=== PATIENT | male | born 1965 | race African-American/Black ===

== ENCOUNTER 2019-01-22 21:11 | Inpatient (IN) | payer MEDICAID ==
[~2019-01-22] VITALS: Ht 182.9 cm; Wt 82.6 kg
[2019-01-22 21:45] LABS: Basophils # (auto) 0.1 uL; Eosinophils # (auto) 0.3 uL; Eosinophils % (auto) 7.3 % (0.0-7.0); Hemoglobin 16.6 g/dL (13.5-17.5); Nucleated Red Blood Cells % 0.1 %; White Blood Cell 4.6 10^3/uL (4.4-10.8)
[2019-01-22] MEDS ORDERED: LORazepam 2MG/ML-1ML VIAL IV ONE (21:45)
[2019-01-22] MEDS ORDERED: ASPirin 81 mg TAB PO ONE (21:45)
[2019-01-22 22:06] LABS: Albumin 3.8 g/dL (3.4-5.0); BUN/Creatinine Ratio 11.4; Calcium 8.6 mg/dL (8.5-10.1); Magnesium 2.2 mg/dL (1.6-2.6); Potassium 3.6 mmol/L (3.5-5.1)
[2019-01-22 22:09] LABS: Bilirubin, Total 1.2 mg/dL (0.2-1.0); Total Protein 7.1 g/dL (6.4-8.2)
[2019-01-22 22:10] LABS: Basophils % (auto) 2.3 % (0.0-2.0); Hematocrit 47.6 % (41.0-53.0); Lymphocytes # (auto) 1.5 uL; Lymphocytes % (auto) 31.7 % (10.0-50.0); Mean Corpuscular Hemoglobin 33.3 pg (28.0-32.0); Mean Corpuscular Hgb Conc. 34.8 g/dL (32.0-36.0); Mean Corpuscular Volume 95.6 fL (80.0-100.0); Monocytes # (auto) 0.4 uL; Monocytes % (auto) 8.8 % (0.0-12.0); Neutrophils # (auto) 2.3 uL; Neutrophils % (auto) 49.9 % (37.0-80.0); Platelet Count (auto) 158 10^3/uL (140-450); Red Blood Cells 4.98 10^6/uL (4.5-5.90); Red Cell Distribution Width 13.1 % (11.8-14.3)
[2019-01-22] MEDS ORDERED: MORPHINE SULFATE 10 MG/ML INJ 1ML SDV IV ONE (22:30)
[2019-01-22] MEDS ORDERED: ONDANSETRON HCL 4 MG/2 ML VIAL IV ONE (22:30)
[2019-01-22 22:43] LABS: INR < 0.93 (0.9-1.15); Partial Thromboplastin Time 26.6 sec (23.64-32.05)
[2019-01-22] MEDS ORDERED: ENALAPRILAT 1.25 MG/ML-1ML VIAL IV ONE (23:45)
[2019-01-23 01:18] LABS: Urine WBC None Seen /hpf (0 - 3)
[2019-01-23 01:38] LABS: Urine Amorphous Crystal FEW /hpf (None Seen); Urine Bacteria NONE SEEN /hpf (None Seen); Urine Blood Negative /uL (Negative); Urine Mucus FEW (None Seen); Urine Specific Gravity 1.026 (1.001-1.035)
[2019-01-23 01:47] LABS: Amphetamine Screen, Urine NEGATIVE (NEGATIVE); Barbiturate Scree,Urine NEGATIVE (NEGATIVE); Benzodiazephine Screen, Urine NEGATIVE (NEGATIVE); Cannabinoid Screen, Urine POSITIVE (NEGATIVE)
[2019-01-23 01:56] LABS: Cocaine Screen, Urine NEGATIVE (NEGATIVE); Phencyclidine Screen, Urine NEGATIVE (NEGATIVE)
[2019-01-23 02:49] LABS: Opiate Scree,Urine NEGATIVE (NEGATIVE)
[2019-01-23] MEDS ORDERED: cloNIDine HCL 0.1 MG TAB PO PRN (04:30)
[2019-01-23] MEDS ORDERED: MORPHINE SULF INJ 2 MG/ML SYRINGE 1ML IV PRN (04:30)
[2019-01-23] MEDS ORDERED: ACETAMINOPHEN 500 MG TAB PO PRN (04:30)
[2019-01-23] MEDS ORDERED: NITROGLYCERIN 0.4 MG SL TAB SL PRN (04:30)
[2019-01-23] MEDS ORDERED: ONDANSETRON HCL 4 MG/2 ML VIAL IV PRN (04:30)
--- NOTE | 2019-01-23 05:30 | NUR ---
PATIENT ARRIVED TO UNIT VIA STRETCHER. HE WAS ABLE TO AMBULATE TO THE BED. HE COMPLAINS OF CHEST PAIN IN WHICH I MEDICATED HIM. NO COMPLAINTS OF SHORTNESS OF BREATH. HIS OXYGENATION WAS GOOD AT 96% ON ROOM AIR. BED IS LOCKED IN THE LOWEST POSITION WITH SIDE RAILS UP X2. CALL LIGHT WITHIN REACH. WILL CONTINUE TO MONITOR.
[2019-01-23] MEDS: MORPHINE SULF INJ 2 MG/ML SYRINGE 1ML IV PRN ×2 (05:36→10:10)
[2019-01-23] MEDS ORDERED: LISI10TA6 PO (06:10)
[2019-01-23] MEDS ORDERED: HYDR-4833 PO (06:10)
[2019-01-23] MEDS ORDERED: HCTZ25T PO (06:10)
[2019-01-23] MEDS ORDERED: AMLO5TAB15 PO (06:10)
[2019-01-23] MEDS ORDERED: METH500T6 PO (06:10)
[2019-01-23] MEDS ORDERED: CYCL1TAB18 PO (06:10)
[2019-01-23 06:22] VITALS: BP 151/95
[2019-01-23 07:27] LABS: Basophils # (auto) 0.1 uL; Basophils % (auto) 1.5 % (0.0-2.0); Eosinophils # (auto) 0.3 uL; Eosinophils % (auto) 7.5 % (0.0-7.0); Hematocrit 44.8 % (41.0-53.0); Hemoglobin 15.1 g/dL (13.5-17.5); Lymphocytes % (auto) 30.6 % (10.0-50.0); Mean Corpuscular Hemoglobin 32.8 pg (28.0-32.0); Mean Corpuscular Hgb Conc. 33.8 g/dL (32.0-36.0); Monocytes # (auto) 0.4 uL; Monocytes % (auto) 10.4 % (0.0-12.0); Neutrophils # (auto) 1.7 uL; Nucleated Red Blood Cells % 0.1 %; Platelet Count (auto) 128 10^3/uL (140-450); Red Blood Cells 4.62 10^6/uL (4.5-5.90); Red Cell Distribution Width 13.1 % (11.8-14.3); White Blood Cell 3.4 10^3/uL (4.4-10.8)
[2019-01-23 07:52] LABS: Cholesterol 170 mg/dL (< 200); Triglycerides 67 mg/dL (< 150)
[2019-01-23 07:54] LABS: HDL Cholesterol 68 mg/dL (40-59); LDL Cholesterol 89 mg/dL (< 100)
[2019-01-23 08:12] VITALS: BP 150/89
[2019-01-23 08:16] VITALS: BP 150/89
[2019-01-23 08:34] LABS: Calcium 8.2 mg/dL (8.5-10.1); Potassium 3.8 mmol/L (3.5-5.1)
[2019-01-23] MEDS: PANTOPRAZOLE 40 MG TAB PO SCH (10:08)
[2019-01-23] MEDS: METOPROLOL TARTRATE 25 MG TAB PO SCH ×2 (10:08→21:32)
[2019-01-23] MEDS: ASPirin-EC 81 mg tab PO SCH (10:09)
[2019-01-23] MEDS: LOSARTAN POTASSIUM 50 MG TAB PO SCH ×2 (10:09→21:33)
[2019-01-23] MEDS ORDERED: DOXA2TAB PO (12:26)
[2019-01-23 12:34] VITALS: BP 152/70
[2019-01-23 16:21] VITALS: BP 136/78
[2019-01-23] MEDS: HYDROcodone-ACET 5/325MG TAB PO PRN ×2 (18:49→22:54)
--- NOTE | 2019-01-23 19:00 | NUR ---
Opening Shift Note Assumed care of patient, awake and alert. No S/S of distress/SOB or pain. Instructed on POC and to call for assist PRN, will continue to monitor for changes Q1hr and PRN.
--- NOTE | 2019-01-23 19:52 | NUR ---
Dr. Holland with patient at bedside.
[2019-01-23] MEDS ORDERED: LORazepam 2MG/ML-1ML VIAL IV PRN (20:15)
--- NOTE | 2019-01-23 20:46 | NUR ---
IV insertion IV access obtained to right AC, via clean sterile technique by inserting 20 gauge catheter after first attempt. IV secured properly. No trauma to site. Patient tolerated procedure well. Addendum: 01/23/19 at 2051 by STEFANY HERRERA RN RN Time was at 1930
[2019-01-23] MEDS: DOXAZOSIN MESYL 2 MG TAB PO SCH (21:33)
[2019-01-23] MEDS: ATORVASTATIN 20 MG TAB PO SCH (21:33)
[2019-01-23] MEDS: TEMAZEPAM 15 MG CAP PO PRN (21:34)
[2019-01-23 22:12] VITALS: BP 142/72
[2019-01-24 04:54] VITALS: BP 157/91
[2019-01-24] MEDS: HYDROcodone-ACET 5/325MG TAB PO PRN ×5 (04:55→22:41)
[2019-01-24 08:00] VITALS: BP 138/57
[2019-01-24] MEDS ORDERED: ADENOSINE 70 MG in GIVE UN-DILUTED 0 ML IV STA (08:17)
[2019-01-24 09:00] VITALS: BP 157/95
[2019-01-24] MEDS: PANTOPRAZOLE 40 MG TAB PO SCH (09:38)
[2019-01-24] MEDS: METOPROLOL TARTRATE 25 MG TAB PO SCH ×2 (09:39→21:48)
[2019-01-24] MEDS: ASPirin-EC 81 mg tab PO SCH (09:40)
[2019-01-24] MEDS: LOSARTAN POTASSIUM 50 MG TAB PO SCH ×2 (09:40→21:47)
--- NOTE | 2019-01-24 11:38 | NUR ---
ELECTROENCEPHALOGRAM COMPLETED AT BEDSIDE. ALTON SANTIZO NOTIFIED.
[2019-01-24 13:00] VITALS: BP 151/87
[2019-01-24 17:07] VITALS: BP 142/83
--- NOTE | 2019-01-24 20:30 | NUR ---
Dr. Holland with patient at bedside.
[2019-01-24] MEDS: DOXAZOSIN MESYL 2 MG TAB PO SCH (21:47)
[2019-01-24] MEDS: ATORVASTATIN 20 MG TAB PO SCH (21:48)
[2019-01-24] MEDS: TEMAZEPAM 15 MG CAP PO PRN (21:48)
[2019-01-24 22:26] VITALS: BP 155/99
[2019-01-25 05:39] VITALS: BP 124/86
[2019-01-25] MEDS ORDERED: LIDOCAINE 2%HCL (LOCAL ANESTH.) INJ 20ML MDV ONE (07:37)
[2019-01-25] MEDS ORDERED: IOHEXOL 350 MG/ML 100ML IJ ONE (07:38)
--- NOTE | 2019-01-25 07:44 | NUR ---
Patient taken to labeling specialist via bed, no distress noted upon departure.
--- NOTE | 2019-01-25 08:00 | NUR ---
Opening Shift Note Assumed care of patient, awake, alert and oriented X4. No S/S of distress/SOB or pain. Tele# 67, sinus rhythm @ 72 bpm. IV to right antecubital, 20 gauge, patent and saline locked. Instructed on POC and to call for assist PRN, verbalized understanding. Bed locked, in lowest position, call light within reach, will continue to monitor for changes Q1hr and PRN.
[2019-01-25] MEDS ORDERED: VERAPAMIL 2.5MG/ML INJ 2ML VIAL IV ONE (08:20)
[2019-01-25] MEDS ORDERED: fentaNYL CITRATE 100 MCG/2 ML VL ONE (08:20)
[2019-01-25] MEDS ORDERED: IODIXANOL 320MG/ML 100ML BTL IV ONE (08:22)
[2019-01-25] MEDS ORDERED: MIDAZOLAM HCL 1MG/1ML-2 ML VIAL ONE (08:22)
[2019-01-25] MEDS ORDERED: ANGIOMAX 250 MG VIAL IV ONE (08:23)
[2019-01-25] MEDS ORDERED: SODIUM CHL 0.9% 0 ML ONE (08:23)
[2019-01-25] MEDS ORDERED: HEPARIN SODIUM (PORCINE) 5000 UNITS/ML 1ML VIAL ONE (08:32)
[2019-01-25] MEDS: METOPROLOL TARTRATE 25 MG TAB PO SCH (09:28)
[2019-01-25] MEDS: ASPirin-EC 81 mg tab PO SCH (10:00)
--- NOTE | 2019-01-25 10:05 | NUR ---
Patient returned from Machine Specialist via bed, left wrist vascular band in place, vascular status within normal limits, good, strong palpable radial pulses bilaterally. B/P 161/101 HR 70 bpm. Prescribed blood pressure medications administered, will reassess.
[2019-01-25] MEDS: PANTOPRAZOLE 40 MG TAB PO SCH (10:07)
[2019-01-25] MEDS: LOSARTAN POTASSIUM 50 MG TAB PO SCH (10:07)
[2019-01-25] MEDS: HYDROcodone-ACET 5/325MG TAB PO PRN (10:08)
--- NOTE | 2019-01-25 11:57 | NUR ---
ROUNDS Dr Cadet at bedside for rounds, new orders received and followed through. Patient updated on plan of care, verbalized understanding.
[2019-01-25] MEDS ORDERED: hydrALAZINE HCL 20 MG/ML VL IV PRN (12:00)
[2019-01-25] MEDS ORDERED: cloNIDine HCL 0.1 MG TAB PO ONE (12:00)
[2019-01-25 13:00] VITALS: BP 154/90
[2019-01-25 17:00] VITALS: BP 142/84
--- NOTE | 2019-01-25 17:04 | NUR ---
assessment Patient is a 53 year old male who is alert and oriented. Patients cognitive abilities are intact. Prior to admission patient lived home with family and functioned independently. Patient informed me he is able to care for his own ADLs. Per patient he will return home to his prior living arrangements post discharge and family will transport him home. Patient informed me he has no need for DME. Patient informed me his PCP is Dr Valencia. Patient informed me he was reaching something in his closet and felt light headed and fell in the closet. Patient informed me his called 911 and then took his blood pressure and it was 185/150. Patient was transported to ER and admitted. Patient may need a home health safety eval and med management on discharge. I informed patient he has a right to speak to a administrator social welfare regarding all care. I informed patient he has a right to participate in any and all discharge planning. Patient does not have a POA and advanced directive. I have offered patient information on POA and advanced directives. I informed the patient the advantages and benefits of having an Advanced Directive. Patient verbalized understanding and agreed to discharge plan. Addendum: 01/25/19 at 1707 by Poppy SCHAFFER Amended: Links added.
--- NOTE | 2019-01-25 17:06 | NUR ---
B/P 142/84 HR 64 BPM
== END 2019-01-25 17:35 | disposition home or self-care (01) | DRG 192 ==
LOC: ER 21:13 → TELE 21:14 → TELE-WESTW 01-23 05:30
PROVIDERS: ADMIT Nurse Practitioner Family; ATTEND Hospitalist
PROC: B211YZZ Fluoroscopy of Multiple Coronary Arteries using Other Contrast (ICD-10-PCS; principal; 2019-01-25)
DX: I42.8 Other cardiomyopathies (principal); I11.0 Hypertensive heart disease with heart failure; I50.9 Heart failure, unspecified; I25.10 Atherosclerotic heart disease of native coronary artery without angina pectoris; R55 Syncope and collapse; F17.210 Nicotine dependence, cigarettes, uncomplicated; I16.1 Hypertensive emergency; N40.0 Benign prostatic hyperplasia without lower urinary tract symptoms; Z79.899 Other long term (current) drug therapy; Z82.49 Family history of ischemic heart disease and other diseases of the circulatory system
CPT/HCPCS: 36415; 70450; 70551; 71045; 78452; 80048; 80053; 80061; 80307; 80320; 81001; 83735; 83880; 84484; 85025; 85379; 85610; 85730; 93005; 93017; 93454; 93886; 94761; 95819; 96374; 96375; 99152; G0378; J0153; J2250; J2405; Q9967

== ENCOUNTER 2019-08-03 12:19 | Inpatient (IN) | payer MEDICAID, OTHER ==
[~2019-08-03] VITALS: Ht 182.9 cm; Wt 81.6 kg
[~2019-08-03 12:19] MED LIST: CYCL1TAB18 PO; DOXA2TAB PO; HYDR-4833 PO
[2019-08-03] MEDS ORDERED: cloNIDine HCL 0.1 MG TAB PO ONE (12:45)
[2019-08-03 13:06] LABS: Basophils # (auto) 0.1 10 ^3/uL (0-0.2); Basophils % (auto) 1.5 % (0.0-2.0); Eosinophils # (auto) 0.2 10 ^3/uL (0-0.8); Eosinophils % (auto) 6.3 % (0.0-7.0); Hematocrit 47.2 % (41.0-53.0); Lymphocytes # (auto) 1.3 10 ^3/uL (0.4-5.4); Lymphocytes % (auto) 34.4 % (10.0-50.0); Mean Corpuscular Hemoglobin 32.5 pg (28.0-32.0); Mean Corpuscular Hgb Conc. 33.8 g/dL (32.0-36.0); Mean Corpuscular Volume 96.1 fL (80.0-100.0); Monocytes # (auto) 0.4 10 ^3/uL (0-1.3); Monocytes % (auto) 9.9 % (0.0-12.0); Neutrophils # (auto) 1.9 10 ^3/uL (1.6-8.6); Neutrophils % (auto) 47.9 % (37.0-80.0); Nucleated Red Blood Cells % 0.2 %; Platelet Count (auto) 158 10^3/uL (140-450); Red Blood Cells 4.91 10^6/uL (4.5-5.90); Red Cell Distribution Width 12.9 % (11.8-14.3); White Blood Cell 3.9 10^3/uL (4.4-10.8)
[2019-08-03 13:21] LABS: Albumin 3.7 g/dL (3.4-5.0); Calcium 8.6 mg/dL (8.5-10.1); Potassium 4.2 mmol/L (3.5-5.1)
[2019-08-03 13:27] LABS: BUN/Creatinine Ratio 10.1; Bilirubin, Total 0.8 mg/dL (0.2-1.0); Total Protein 6.8 g/dL (6.4-8.2)
[2019-08-03] MEDS ORDERED: MORPHINE SULFATE 4 MG/ML SYR/VIAL IV ONE (13:45)
[2019-08-03] MEDS ORDERED: ONDANSETRON HCL 4 MG/2 ML VIAL IV ONE (13:45)
[2019-08-03] MEDS ORDERED: LORazepam 0.5 MG TAB PO PRN (15:00)
[2019-08-03] MEDS ORDERED: NITROGLYCERIN 0.4 MG SL TAB SL PRN ×2 (15:00)
[2019-08-03] MEDS ORDERED: FUROSEMIDE 20 MG/2 ML VIAL IV ONE (15:00)
[2019-08-03] MEDS ORDERED: MORPHINE SULFATE 4 MG/ML SYR/VIAL IV PRN (15:00)
[2019-08-03] MEDS ORDERED: MORPHINE SULF INJ 2 MG/ML SYRINGE 1ML IV PRN (15:00)
[2019-08-03] MEDS ORDERED: ONDANSETRON HCL 4 MG/2 ML VIAL IV PRN (15:00)
[2019-08-03] MEDS ORDERED: MORPHINE SULF INJ 2 MG/ML SYRINGE 1ML IV ONE (15:30)
[2019-08-03] MEDS ORDERED: PANTOPRAZOLE 40 MG/10 ML VIAL INJ IV ONE (15:45)
[2019-08-03] MEDS ORDERED: LISI-646 PO (17:33)
[2019-08-03] MEDS ORDERED: TAMS1CAP25 PO (17:35)
[2019-08-03] MEDS ORDERED: ATOR10TA PO (17:35)
[2019-08-03] MEDS: FUROSEMIDE 20 MG/2 ML VIAL IV SCH (17:56)
[2019-08-03] MEDS ORDERED: METOPROLOL SUCCINATE XL 50 MG TAB PO ONE (19:00)
[2019-08-03] MEDS ORDERED: hydrALAZINE HCL 20 MG/ML VL IV PRN (19:00)
[2019-08-03] MEDS ORDERED: METOPROLOL TARTRATE 25 MG TAB PO SCH ×2 (19:00→22:00)
[2019-08-03] MEDS: HYDROcodone-ACET 5/325MG TAB PO PRN (19:27)
[2019-08-03] MEDS: D5W/SOD CHL 0.45% 1,000 ML IV SCH (19:39)
--- NOTE | 2019-08-03 20:54 | NUR ---
Admission of the shift with diagnosis of Chest pain r/o ACS, Hypertensive Emergency Crisis. Alert/oriented, assessed for pain, given hydrocodone about 1 hr ago in ER for c/o chronic back pain. Said, pain now is about 3/10. Resp is even, unlabored, no cardiac or resp distress noted or reported. Call light within reach, instructed to use for help. Came with i/v D5 1/2 NS @ 75ml/hr. Monitoring on tele with SR at this time.
[2019-08-03 21:45] VITALS: BP 141/90
[2019-08-03] MEDS: CYCLOBENZAPRINE HCL 10 MG TAB PO PRN (22:45)
[2019-08-03] MEDS: ATORVASTATIN 20 MG TAB PO SCH (22:46)
[2019-08-03] MEDS: ZOLPIDEM TARTRATE 5 MG TAB PO PRN (22:46)
[2019-08-04 05:00] VITALS: BP 131/77
[2019-08-04] MEDS: FUROSEMIDE 20 MG/2 ML VIAL IV SCH (06:33)
--- NOTE | 2019-08-04 07:13 | NUR ---
OPENING SHIFT NOTE Assumed care of patient from home energy rater RN. Patient is alert and oriented x4, no signs of distress noted, patient denies pain. Patient was updated on the plan of care and verbalized understanding. Bed is locked, in the lowest position, side rails upx2 and call light is in reach. Patient was encouraged to call for assistance as needed.
[2019-08-04 07:21] LABS: Basophils # (auto) 0 10 ^3/uL (0-0.2); Basophils % (auto) 0.9 % (0.0-2.0); Eosinophils # (auto) 0.2 10 ^3/uL (0-0.8); Eosinophils % (auto) 5.9 % (0.0-7.0); Hematocrit 41.8 % (41.0-53.0); Hemoglobin 14.3 g/dL (13.5-17.5); Lymphocytes # (auto) 1.4 10 ^3/uL (0.4-5.4); Lymphocytes % (auto) 36.2 % (10.0-50.0); Mean Corpuscular Hemoglobin 32.9 pg (28.0-32.0); Mean Corpuscular Hgb Conc. 34.3 g/dL (32.0-36.0); Mean Corpuscular Volume 95.9 fL (80.0-100.0); Monocytes # (auto) 0.3 10 ^3/uL (0-1.3); Monocytes % (auto) 8.4 % (0.0-12.0); Neutrophils # (auto) 1.8 10 ^3/uL (1.6-8.6); Neutrophils % (auto) 48.6 % (37.0-80.0); Platelet Count (auto) 126 10^3/uL (140-450); Red Blood Cells 4.35 10^6/uL (4.5-5.90); Red Cell Distribution Width 12.6 % (11.8-14.3); White Blood Cell 3.7 10^3/uL (4.4-10.8)
[2019-08-04 07:28] LABS: INR 1.01 (0.9-1.15); Partial Thromboplastin Time 27.1 sec (23.64-32.05)
[2019-08-04 07:34] LABS: Albumin 3.2 g/dL (3.4-5.0); Calcium 8.3 mg/dL (8.5-10.1); Magnesium 2.3 mg/dL (1.6-2.6); Potassium 3.9 mmol/L (3.5-5.1)
[2019-08-04 07:45] LABS: BUN/Creatinine Ratio 11.6; Bilirubin, Total 1.5 mg/dL (0.2-1.0); Phosphorus 3.2 mg/dL (2.5-4.90); Total Protein 5.9 g/dL (6.4-8.2)
[2019-08-04 09:00] VITALS: BP 127/87
[2019-08-04] MEDS: HYDROcodone-ACET 5/325MG TAB PO PRN (09:39)
[2019-08-04] MEDS: DOCUSATE SOD 100 MG CAP PO SCH (09:40)
[2019-08-04] MEDS: ASPirin 81 mg TAB PO SCH (09:42)
[2019-08-04] MEDS: PANTOPRAZOLE 40 MG/10 ML VIAL INJ IV SCH (09:42)
[2019-08-04] MEDS: ENOXAPARIN SOD 40 MG/0.4 ML SYRINGE SC SCH (09:42)
[2019-08-04] MEDS: LISINOPRIL 20 MG TAB PO SCH (09:46)
[2019-08-04] MEDS ORDERED: DOXAZOSIN MESYL 2 MG TAB PO SCH ×2 (10:00→22:00)
[2019-08-04] MEDS ORDERED: METOPROLOL SUCCINATE XL 50 MG TAB PO SCH (10:00)
[2019-08-04] MEDS: D5W/SOD CHL 0.45% 1,000 ML IV SCH (11:31)
[2019-08-04] MEDS ORDERED: ONDANSETRON HCL 4 MG/2 ML VIAL IV PRN (11:45)
[2019-08-04] MEDS ORDERED: MORPHINE SULF INJ 2 MG/ML SYRINGE 1ML IV PRN (11:45)
[2019-08-04] MEDS ORDERED: HYDROcodone-ACET 5/325MG TAB PO PRN (11:45)
[2019-08-04] MEDS ORDERED: ACETAMINOPHEN 500 MG TAB PO PRN (11:45)
[2019-08-04] MEDS ORDERED: FUROSEMIDE 20 MG TAB PO ONE (11:45)
[2019-08-04] MEDS ORDERED: NICOTINE 21MG/24 HR TOPICAL PATCH TD ONE (11:45)
--- NOTE | 2019-08-04 11:46 | NUR ---
HOSPITALIST AT BEDSIDE Ron at bedside, plan of care discussed with patient and he verbalized understanding.
--- NOTE | 2019-08-04 11:50 | NUR ---
CALLED PATIENT'S Patient's Ranjana, after obtaining correct password, was updated on patient status and plan of care. She verbalized understanding, all questions answered.
--- NOTE | 2019-08-04 12:23 | NUR ---
YADY CALLED regarding patient home medication, new order received to continue patient home medication selene.
[2019-08-04 13:00] VITALS: BP 134/87
--- NOTE | 2019-08-04 14:36 | NUR ---
TIMUR AT BEDSIDE updated on the patient status, plan of care discussed with the patient, he verbalized understanding. Per Timur, patient is cleared from a cardiology standpoint.
[2019-08-04 17:07] VITALS: BP 129/81
--- NOTE | 2019-08-04 19:03 | NUR ---
CLOSING SHIFT NOTE Care endorsed to maintenance technician 3rd shift RN.
[2019-08-04] MEDS: CYCLOBENZAPRINE HCL 10 MG TAB PO PRN (20:57)
[2019-08-04] MEDS: ATORVASTATIN 20 MG TAB PO SCH (20:57)
[2019-08-04] MEDS: ZOLPIDEM TARTRATE 5 MG TAB PO PRN (21:49)
[2019-08-04 22:00] VITALS: BP 137/85
--- NOTE | 2019-08-04 23:49 | NUR ---
Opening Shift Note Assumed care of patient, awake and alert. No S/S of distress/SOB or pain. Instructed on POC and to call for assist PRN, will continue to monitor for changes Q1hr and PRN.
[2019-08-05 06:00] VITALS: BP 137/85
--- NOTE | 2019-08-05 07:40 | NUR ---
OPENING NOTE ASSUMED CARE OF PT. ALERT AND ORIENTED. NO S/S OF SOB/DISTRESS NOTED. BED SET TO LOWEST POSITION/LOCKED. BEDSIDE RAILS UP X2. CALL LIGHT WITHIN REACH. INSTRUCTED PATIENT TO CALL FOR ASSISTANCE. UPDATED PT ON PLAN OF CARE. PT VERBALIZED UNDERSTANDING. WILL CONTINUE TO MONITOR Q1HR AND PRN.
[2019-08-05 09:00] VITALS: BP 139/87
[2019-08-05] MEDS: PANTOPRAZOLE 40 MG/10 ML VIAL INJ IV SCH (09:35)
[2019-08-05] MEDS: LISINOPRIL 20 MG TAB PO SCH (09:35)
[2019-08-05] MEDS: ASPirin 81 mg TAB PO SCH (09:35)
[2019-08-05] MEDS: ENOXAPARIN SOD 40 MG/0.4 ML SYRINGE SC SCH (09:35)
[2019-08-05] MEDS: DOCUSATE SOD 100 MG CAP PO SCH (09:36)
[2019-08-05] MEDS ORDERED: METOPROLOL SUCCINATE XL 50 MG TAB PO SCH (10:00)
[2019-08-05] MEDS ORDERED: NICOTINE 21MG/24 HR TOPICAL PATCH TD SCH (10:00)
[2019-08-05 12:11] VITALS: BP 139/87
--- NOTE | 2019-08-05 12:38 | NUR ---
Discharge Discharge instructions given as ordered. Encourage to follow up with PMD as instructed. All questions and concerns addressed. Patient verbalized understanding. Medication reconciliation form completed and copy given to patient. Home medications held in Pharmacy returned to patient, and needed vaccines given. IV removed with catheter intact. Telemetry unit returned to ICU.
--- NOTE | 2019-08-05 12:52 | NUR ---
Patient taken to vehicle via wheelchair with all personal belongings, accompanied by staff and family member. No distress noted at time of departure.
== END 2019-08-05 12:50 | disposition home or self-care (01) | DRG 199 ==
LOC: ER 12:19 → TELE 12:20 → TELE-EAST 20:10
PROVIDERS: ADMIT Hospitalist; ATTEND Hospitalist
DX: I16.0 Hypertensive urgency (principal); N17.0 Acute kidney failure with tubular necrosis; E78.5 Hyperlipidemia, unspecified; F17.210 Nicotine dependence, cigarettes, uncomplicated; F19.10 Other psychoactive substance abuse, uncomplicated; I12.9 Hypertensive chronic kidney disease with stage 1 through stage 4 chronic kidney disease, or unspecified chronic kidney disease; N18.9 Chronic kidney disease, unspecified; K29.20 Alcoholic gastritis without bleeding; K21.9 Gastro-esophageal reflux disease without esophagitis; I42.8 Other cardiomyopathies; N40.0 Benign prostatic hyperplasia without lower urinary tract symptoms; E03.9 Hypothyroidism, unspecified; Z79.899 Other long term (current) drug therapy; Z91.14 Patient's other noncompliance with medication regimen; I25.10 Atherosclerotic heart disease of native coronary artery without angina pectoris
CPT/HCPCS: 36415; 71046; 80053; 80061; 83036; 83735; 84100; 84484; 85025; 85610; 85730; 93005; 93306; 96374; 96375; 96376; C9113; G0378; J2405

== ENCOUNTER 2020-10-29 12:15 | Emergency (ER) | payer OTHER ==
[~2020-10-29 12:15] MED LIST changes: +ATOR10TA PO; +CYCL-839 PO; -CYCL1TAB18 PO; +LISI20TA28 PO; +TAMS1CAP25 PO
[2020-10-29 12:28] VITALS: BP 148/103
== END 2020-10-29 13:12 | disposition left against medical advice (07) ==
LOC: ER 12:15 → EDBD 12:15 → ER 13:12
DX: R05 Cough (principal); R50.9 Fever, unspecified; Z53.21 Procedure and treatment not carried out due to patient leaving prior to being seen by health care provider